=== PATIENT | male | born 2000 | race African-American/Black ===

== ENCOUNTER 2020-09-26 23:23 | Emergency (ER) | payer SELFPAY ==
[~2020-09-26] VITALS: Ht 177.8 cm; Wt 63.0 kg
[2020-09-26 23:24] VITALS: BP 137/75
== END 2020-09-27 00:21 | disposition left against medical advice (07) ==
LOC: ER 23:23
DX: Z13.9 Encounter for screening, unspecified (principal)
CPT/HCPCS: 99283